=== PATIENT | female | born 1990 | race Caucasian/White ===

== ENCOUNTER 2024-09-07 03:29 | Emergency (ER) | payer BC, SELFPAY ==
--- NOTE | 2024-09-07 | ECG_ITS ---
Test Reason : CHEST PX Blood Pressure : */* mmHG Vent. Rate : 83 BPM Atrial Rate : 83 BPM P-R Int : 124 ms QRS Dur : 78 ms QT Int : 362 ms P-R-T Axes : 67 67 56 degrees QTcB Int : 425 ms Normal sinus rhythm Normal ECG No previous ECGs available Referred By: Generic ED Physician Electronically Signed By: MOUSTAPHA DONAHUE
--- NOTE | ~2024-09-07 | XR_ITS ---
CLINICAL HISTORY: CP 1 view chest x-ray Comparison: None Findings: The lungs are clear. Heart size is normal. No acute fracture. IMPRESSION: 1. No acute findings. This document has been electronically signed by: Chas Dietrich MD on 09/07/2024 04:24:42
[2024-09-07 03:42] VITALS: BP 97/63; PULSE 82; RESP 18; TEMP 36.7; O2SAT 98; BMI 26.2
[2024-09-07 06:32] VITALS: BP 110/64; PULSE 65; RESP 16; TEMP 36.6; O2SAT 97
[2024-09-07 06:32] LABS: MANUAL DIFF FLAG NO
[2024-09-07 06:36] LABS: Basophils Percent Auto 0.2 % (0-2); Eosinophils Absolute Auto 0.3 X10*3/uL (0.0-0.4); Hematocrit 34.7 % (37.0-47.0); Imm Gran Abs Auto 0.03 X10*3/uL (0.00-0.03); Imm Gran Pct Auto 0.2 % (0.0-0.4); Lymphocytes Absolute Auto 1.6 X10*3/uL (1.2-4.9); Lymphocytes Percent Auto 11.9 % (20-40); Mean Corpuscular HGB Conc 34.6 g/dl (31.0-35.0); Mean Corpuscular Hemoglobin 31.3 pg (27.0-33.0); Mean Corpuscular Volume 90.4 fL (80.0-98.0); Mean Platelet Volume 10.3 fL (9.4-12.3); Monocytes Absolute Auto 0.8 X10*3/uL (0.1-1.2); Monocytes Percent Auto 6.3 % (2-11); Neutrophils Absolute Auto 10.3 x10*3/uL (2.0-8.3); Neutrophils Percent Auto 79.4 % (45-73); Platelet Count 209 X10*3/uL (160-400); Red Blood Count 3.84 X10*6/uL (4.20-5.50); Red Cell Distribution Width 12.3 % (11.0-16.0)
[2024-09-07 06:51] LABS: Alanine Aminotransferase 9 U/L (0-31); Albumin Level 3.7 g/dL (3.5-5.0); Alkaline Phosphatase 32 U/L (39-117); Anion Gap 11 (12-20); Aspartate Amino Transferase 17 U/L (5-31); Bilirubin Total 0.3 mg/dL (0.0-1.0); Blood Urea Nitrogen 13 mg/dL (9-16); Calcium 8.2 mg/dL (8.4-10.2); Carbon Dioxide 22 mmol/L (22-29); Chloride 111 mmol/L (96-108); Creatinine Clr Calc Pharmacy 115.4; Estimated Glomerular Filt Rate > 60; Glucose Random 91 mg/dL (60-115); Magnesium 1.6 mg/dL (1.6-2.6); Potassium 4.2 mmol/L (3.3-5.1); Sodium 140 mmol/L (135-145); Total Protein 5.9 g/dL (6.5-8.0)
[2024-09-07 06:58] LABS: Troponin-I High Sensitivity < 2.7 ng/L (<3.5-17.0)
--- NOTE | 2024-09-07 07:43 | ED.CHESTPAIN ---
HPI - Chest Pain General Chief Complaint: Chest Pain Stated Complaint: CP Time Seen by Provider: 09/07/24 07:43 History of Present Illness ED Provider: Oriana GROVES narrative: The patient is a 34-year-old female who is generally in good health. She is on no medications. She is not on control pills although she has an IUD. She says that she was sleeping tonight when she felt an episode of chest pain that woke her briefly. She went back to bed but later woke up again and had a recurrence of the same chest pain. She says that she ?freaked out? out of concern about what this chest pain might represent and she drove herself to the hospital. She lives at home with her at small children. The patient has no history of hypertension, diabetes, elevated cholesterol, and she is not a smoker although she vapes occasionally. There was no family history of early coronary disease, no family history of significant thromboembolic disease. Related Data Allergies Allergy/AdvReac Type Severity Reaction Status Date / Time No Known Allergies Allergy Verified 09/07/24 03:52 Physical Exam Vital Signs: Vital Signs: Last Vital Signs Temp 97.8 F 09/07/24 08:04 Pulse 67 09/07/24 08:04 Resp 16 09/07/24 08:04 BP 97/65 09/07/24 08:04 Pulse Ox 99 09/07/24 08:04 O2 Del Method Room Air 09/07/24 08:04 BMI result Body Mass Index 26.2 Const: Other: The patient was asleep on the hospital stretcher when I walked into her room. Her heart rate on the monitor while sleeping was in the 50s. She awoke easily to a normal mental status. She looked entirely well. Orientation/consciousness: patient oriented x3 HEENT: Other: Face is symmetrical, mucous membranes moist Eyes: General: appearance normal, both eyes and all related structures Eyelids: Yes eyelids normal Conjunctivae: conjunctivae normal Pupils: Equal, round and reactive pupils present EOM: EOMs intact bilaterally Neck: Neck: Yes normal visual inspection, Yes full ROM, Yes no lymphadenopathy and Yes no JVD Resp: Effort & Inspection: normal respiratory effort Auscultation: clear to auscultation bilaterally Cardio: Rate: regular rate Rhythm: regular rhythm Heart sounds: S1 normal heart sound present and S2 normal heart sound present GI: Other: Abdomen is soft and nontender, no upper abdominal tenderness, no Orosco's sign Skin: Other: Skin is dry and unremarkable Neuro: General: patient oriented x3, gait normal, tone normal, moves all extremities, no focal motor deficits and CN's II-XI intact bilaterally Cranial nerves: Yes Equal, round and reactive pupils present Extrem: Other: No calf swelling or tenderness, no peripheral edema, no asymmetry Medical Decision Making Medical Decision Making [facility] Narrative: The patient is a generally healthy 34-year-old who experienced chest pain for the 1st time in her life during the night tonight. She was very alarmed by this and drove herself to the emergency room. She is not having any ongoing discomfort at the time that I saw her. The discomfort was nonpleuritic. She has a normal EKG. She has a normal troponin. She does not have any risk factors for early coronary disease. She does not have any risk factors for DVT/PE. No physical findings of concern. She looks entirely well. I suspect this was either some kind of esophageal or gastrointestinal source of pain or possibly some chest wall pain. I think she may be discharged. Lab Data 09/07/24 06:27 09/07/24 06:27 Labs: Lab Results 09/07/24 Range/Units 06:27 WBC 13.0 H (4.8-10.8) X10*3/uL RBC 3.84 L (4.20-5.50) X10*6/uL Hgb 12.0 (12.0-16.0) g/dl Hct 34.7 L (37.0-47.0) % MCV 90.4 (80.0-98.0) fL MCH 31.3 (27.0-33.0) pg MCHC 34.6 (31.0-35.0) g/dl RDW 12.3 (11.0-16.0) % Plt Count 209 (160-400) X10*3/uL MPV 10.3 (9.4-12.3) fL Immature Gran % (Auto) 0.2 (0.0-0.4) % Neut % (Auto) 79.4 H (45-73) % Lymph % (Auto) 11.9 L (20-40) % Rogers % (Auto) 6.3 (2-11) % Eos % (Auto) 2.0 (0-4) % Baso % (Auto) 0.2 (0-2) % Lymph # (Auto) 1.6 (1.2-4.9) X10*3/uL Rogers # (Auto) 0.8 (0.1-1.2) X10*3/uL Eos # (Auto) 0.3 (0.0-0.4) X10*3/uL Baso # (Auto) 0.0 (0.0-0.2) X10*3/uL Abs Immat Gran (auto) 0.03 (0.00-0.03) X10*3/uL Absolute Neuts (auto) 10.3 H (2.0-8.3) x10*3/uL Absolute Nucleated RBC 0.000 (0.0-0.012) X10*3/uL Nucleated RBC % (auto) 0.0 (0.0-0.2) /100WBC Sodium 140 (135-145) mmol/L Potassium 4.2 (3.3-5.1) mmol/L Chloride 111 H (96-108) mmol/L Carbon Dioxide 22 (22-29) mmol/L Anion Gap 11 L (12-20) BUN 13 (9-16) mg/dL Creatinine 0.62 (0.5-1.4) mg/dL Estim Creat Clear Calc 115.4 Estimated GFR > 60 Random Glucose 91 (60-115) mg/dL Calcium 8.2 L (8.4-10.2) mg/dL Magnesium 1.6 (1.6-2.6) mg/dL Total Bilirubin 0.3 (0.0-1.0) mg/dL AST 17 (5-31) U/L ALT 9 (0-31) U/L Alkaline Phosphatase 32 L (39-117) U/L Troponin I High Sens < 2.7 (<3.5-17.0) ng/L Total Protein 5.9 L (6.5-8.0) g/dL Albumin 3.7 (3.5-5.0) g/dL Independent Interpretation I performed an independent interpretation of an: EKG Interpretation: EKG at 03:33 shows normal sinus rhythm at 83 beats per minute. It is a normal EKG. Discharge Plan Discharge Clinical Impression: Chest pain Patient Disposition: Home, Self-Care Instructions: Chest Pain (ED) Additional Instructions: Your testing in the emergency room today seems very reassuring. I think it is very unlikely that the chest pain you experienced this morning represents the morning of a heart attack or anything else dangerous such as a blood clot in your lungs. I think it is much more likely that your discomfort came either from your chest wall or from your gastrointestinal symptom. You do not seem to have any risk factors for a more dangerous process and your vital signs and physical exam are also all very reassuring. Please plan on following up with your regular doctor to discuss this episode further. If at any point you feel significantly worse please return to the emergency room for another evaluation. Referrals: Shwetha Cartagena MD [Primary Care Provider] - (Chest pain) Interventions: ED Discharge Assessment Last Done: 09/07/24 08:04 Discharge Date/Time: 09/07/24 08:04 Print Language: Cypriot
[2024-09-07 08:04] VITALS: BP 97/65; PULSE 67; RESP 16; TEMP 36.6; O2SAT 99
== END 2024-09-07 08:04 | disposition home or self-care (01) ==
PROVIDERS: Emergency Provider Emergency Medicine; PCP Family Medicine
DX: R07.89 Other chest pain (principal); Z79.899 Other long term (current) drug therapy
CPT/HCPCS: 36415; 71045; 80053; 83735; 84484; 85025; 93005; 99283; 99285

== ENCOUNTER → 2024-09-07 03:33 | Outpatient (BNV) | payer BC, SELFPAY | PROVIDERS: Emergency Provider Emergency Medicine; PCP Family Medicine; Visit Provider Internal Medicine | DX: R07.9 Chest pain, unspecified (principal) | CPT/HCPCS: 93010 ==

== ENCOUNTER → 2024-09-07 04:08 | Outpatient (BNV) | payer BC, SELFPAY | PROVIDERS: PCP Family Medicine; Visit Provider Radiology Diagnostic Radiology | DX: R07.9 Chest pain, unspecified (principal) | CPT/HCPCS: 71045 ==